=== PATIENT | male | born 1970 | race Caucasian/White ===

== ENCOUNTER 2019-07-14 18:19 | Emergency (ER) | payer SELFPAY ==
[2019-07-14] MEDS ORDERED: EPINEPHRINE INJ 1 MG/10 ML DISP.SYRIN ONE (18:30)
[2019-07-14] MEDS ORDERED: SODIUM BICARBONATE 8.4% INJ 50 MEQ/50 ML DISP.SYRIN ONE ×2 (18:30→19:02)
[2019-07-14] MEDS ORDERED: NOREPINEPHRINE BITARTRATE INJ/PF 4 MG/4 ML SDV IV ONE (18:30)
[2019-07-14] MEDS ORDERED: AMIODARONE HCL INJ 150 MG/3 ML VIAL IV ONE (18:30)
[2019-07-14 18:52] LABS: HEMATOCRIT 43.9 % (37.9-51.0); HEMOGLOBIN 14.2 g/dL (13.5-17.0); MEAN CORPUSCULAR HEMOGLOBIN 30.6 pg (27.0-33.4); MEAN CORPUSCULAR HGB CONC 32.5 g/dL (32.0-36.0); MEAN CORPUSCULAR VOLUME 94 fl (80-97); PLATELET COUNT 157 10^3/uL (150-450); RED BLOOD COUNT 4.65 10^6/uL (4.35-5.55); RED CELL DISTRIBUTION WIDTH 13.6 % (11.5-14.0); WHITE BLOOD COUNT 18.5 10^3/uL (4.0-10.5)
[2019-07-14] MEDS ORDERED: HEPARIN SOD (PORCINE) 1,000 UNIT/ML 10 ML VIAL IV ONE (18:54)
[2019-07-14] MEDS ORDERED: HEPARIN SODIUM,PORCINE/D5W 25,000 UNIT/250 ML RTUINJ IV PRN (18:54)
[2019-07-14 18:56] LABS: INTERNATIONAL RATION (INR) 1.25; PROTHROMBIN TIME 15.8 SEC (11.4-15.4)
[2019-07-14] MEDS ORDERED: HEPARIN SOD (PORCINE) 1,000 UNIT/ML 10 ML VIAL ONE (18:56)
[2019-07-14] MEDS ORDERED: HEPARIN SODIUM,PORCINE/D5W 0 UNIT/0 ML RTUINJ IV ONE (18:56)
[2019-07-14 19:10] LABS: ABSOLUTE LYMPHOCYTES# (MANUAL) 10.7 10^3/uL (0.5-4.7); ABSOLUTE MONOCYTES # (MANUAL) 0.9 10^3/uL (0.1-1.4); BAND NEUTROPHILS % (MANUAL) 3 % (3-5); BASOPHILS % (MANUAL) 0 % (0-2); EOSINOPHILS % (MANUAL) 0 % (0-6); LYMPHOCYTES % (MANUAL) 58 % (13-45); MONOCYTES % (MANUAL) 5 % (3-13); SEGMENTED NEUTROPHILS % (MAN) 34 % (42-78); TOTAL CELLS COUNTED 100
[2019-07-14 19:11] LABS: OVALOCYTES SLIGHT; PLATELET COMMENT ADEQUATE; TOXIC GRANULATION 1+
--- NOTE | 2019-07-14 19:14 | RADIOLOGY REPORT (SQ) ---
EXAM DESCRIPTION: CHEST SINGLE VIEW IMAGES COMPLETED DATE/TIME: 07/14/2019 5:50 pm REASON FOR STUDY: eval for ET tube placement COMPARISON: 09/17/2012 EXAM PARAMETERS: NUMBER OF VIEWS: One view. TECHNIQUE: Single frontal radiographic view of the chest acquired. RADIATION DOSE: NA LIMITATIONS: None. FINDINGS: LUNGS AND PLEURA: Ill-defined cart like opacification in the left lung may represent a sma ll layering left effusion. There is probably a small right pleural effusion. No focal consolidation or pneumothorax. MEDIASTINUM AND HILAR STRUCTURES: No masses. Contour normal. HEART AND VASCULAR STRUCTURES: Heart normal in size. Normal vasculature. BONES: No acute findings. HARDWARE: Endotracheal tube tip is in the lower trachea approximately 2.8 cm above the mike. The e sophagogastric tube is just to the left above the trachea with tip in the mid thorax, probably within the esophagus however needs advancement. OTHER: No other significant finding. IMPRESSION: 1. Endotracheal tube is in good position with tip in the lower thoracic trachea approximately 2.8 cm above the mike. 2. Esophagogastric tube projects over the upper thorax, probably within the upper esophagus. Clinica l correlation is recommended. Recommend advancing at least 15 cm. 3. Probable small bilateral pleural effusions. TECHNICAL DOCUMENTATION: JOB ID: [id number] 2010 [employer]- All Rights Reserved Reading location - IP/workstation name: [id number]
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
[2019-07-14 19:19] LABS: CREATINE KINASE MB 8.78 ng/mL (<4.55)
[2019-07-14 19:23] LABS: TROPONIN I 0.615 ng/mL
[2019-07-14 19:38] VITALS: BP 121/93
[2019-07-14] MEDS ORDERED: HEPARIN SOD (PORCINE) 1,000 UNIT/ML 10 ML VIAL IV PRN (21:56)
--- NOTE | 2019-07-14 22:15 | EKG REPORT ---
SEVERITY:- ABNORMAL ECG - ATRIAL FIBRILLATION LEFT BUNDLE BRANCH BLOCK INFERIOR ST ELEVATION ACUTE INFEROLATERAL AL : Confirmed by: Larry Adam 14-Jul-2019 22:14:39
== END 2019-07-14 19:12 | disposition expired ==
LOC: ER 18:19
PROC: 0BH17EZ Insertion of Endotracheal Airway into Trachea, Via Natural or Artificial Opening (ICD-10-PCS; principal; 2019-07-14)
DX: I46.9 Cardiac arrest, cause unspecified (principal); I21.19 ST elevation (STEMI) myocardial infarction involving other coronary artery of inferior wall; R07.9 Chest pain, unspecified; I47.2 Ventricular tachycardia; V87.7XXA Person injured in collision between other specified motor vehicles (traffic), initial encounter; F17.200 Nicotine dependence, unspecified, uncomplicated; Z88.2 Allergy status to sulfonamides; Z88.8 Allergy status to other drugs, medicaments and biological substances
CPT/HCPCS: 93005; 99291; 92950; 51702; 96374; 36415; 82553; 85025; 85610; 85730; 84484; 71045; 94660; 93010; 31500; J0171; J3490 ×2; J0282; 94002; J1644